=== PATIENT | male | born 1955 | race Caucasian/White ===

== ENCOUNTER 2021-03-13 20:51 | Emergency (ER) | payer MEDICARE ==
[2021-03-13] MEDS ORDERED: Naloxone 0.4 MG/ML SDV IVPUSH STA (21:04)
[2021-03-13] MEDS ORDERED: Naloxone 0.4 MG/ML SDV ONE (21:04)
--- NOTE | 2021-03-13 21:24 | EDM.PDOC ---
ED HPI GENERAL MEDICAL PROBLEM - General Chief Complaint: Neurological Problem Stated Complaint: VIA NADEAU Time Seen by Provider: 03/13/21 20:56 Source of Information: Reports: EMS, Family History Limitations: Reports: Altered Mental Status - History of Present Illness INITIAL COMMENTS - FREE TEXT/NARRATIVE: Alonzo is a 65-year-old male who presents to the ED via [facility] from [facility] in [place] for evaluation of unresponsiveness. The patient was apparently sitting in a wheelchair and became unresponsive. The mention that he had some loss of bowel and bladder control and was having some myoclonic activity. The patient is remained unresponsive with fixed pinpoint pupils and sonorous respirations. He does not respond to painful stimuli. The patient has never been here before so we have no medical information on him, however, EMS did contact one of his daughters who stated that the patient has a history for hypertension, heart disease having had an AR, chronic pain for which he takes hydrocodone but other details for his medical problems are unknown. Upon arrival of EMS we took him to the CT scanner for evaluation of possible stroke or intracranial bleed as he has a disconjugate gaze with fixed pinpoint pupils. - Related Data Allergies Allergy/AdvReac Type Severity Reaction Status Date / Time No Known Allergies Allergy Verified 03/13/21 21:26 Home Meds: Home Meds Acetaminophen/HYDROcodone [HYDROcodone-Acetaminophen 5-325 MG *] mg PO 03/13/21 [History] Azithromycin 250 mg PO DAILY #4 tablet 03/13/21 [Rx] traMADol [Ultram] 50 mg PO 03/13/21 [History] ED ROS GENERAL - Review of Systems Review Of Systems: Unable To Obtain Reason Not Obtained: Patient is unresponsive initially - Physical Exam Exam: See Below Exam Limited By: Altered Mental Status General Appearance: Obtunded (Unresponsive to even painful stimuli) Eye Exam: Bilateral Eye: Abnormal EOM (Conjugate gaze), PERRL (Bilateral pinpoint pupils at 1 mm) Ears: Normal External Exam, Normal TMs Nose: Normal Inspection Throat/Mouth: Normal Inspection. No: Evidence of Tongue Biting Head Exam: Atraumatic, Normocephalic Respiratory/Chest: No Respiratory Distress, Lungs Clear, Normal Breath Sounds, No Accessory Muscle Use Cardiovascular: Normal Peripheral Pulses, Regular Rate, Rhythm, No Murmur GI/Abdominal: Normal Bowel Sounds, Soft, Non-Tender Neuro Exam (Abbreviated): Alert (After receiving Narcan 0.4 mg IV push the patient became more alert.), No Motor/Sensory Deficits, Confused, Slow to Respond, Unresponsive (Initially unresponsive) Extremities: Normal Inspection, Normal Range of Motion, Normal Capillary Refill Skin Exam: Warm, Dry, Intact, Normal Color Course - Vital Signs Last Recorded V/S: Last Vital Signs Temp 36.7 C 03/13/21 21:32 Pulse 70 03/13/21 23:09 Resp 16 03/13/21 23:09 BP 161/87 H 03/13/21 23:09 Pulse Ox 96 03/13/21 23:09 - Orders/Labs/Meds Orders: Active Orders 24 hr Category Date Time Status Insert Urinary Catheter [OM.PC] Q24H Care 03/13/21 21:15 Ordered Urinary Catheter Assessment [RC] ASDIRECTED Care 03/13/21 21:05 Active Chest 1V Frontal [CR] Stat Exams 03/13/21 22:29 Taken Sodium Chloride 0.9% [Normal Saline] 1,000 ml Med 03/13/21 22:30 Active IV ASDIRECTED Isolation [COMM] Stat Oth 03/13/21 21:08 Ordered Medication Orders Sodium Chloride (Normal Saline) 1,000 mls @ 999 mls/hr IV ASDIRECTED MERCEDES Last Admin: 03/13/21 22:33 Dose: 999 mls/hr Documented by: HÉCTOR Labs: Laboratory Tests 03/13/21 03/13/21 03/13/21 Range/Units 20:57 21:13 21:13 WBC 20.0 H (4.5-11.0) K/uL RBC 5.88 (4.30-5.90) M/uL Hgb 16.6 H (12.0-15.0) g/dL Hct 49.7 (40.0-54.0) % MCV 85 (80-98) fL MCH 28 (27-31) pg MCHC 33 (32-36) % Plt Count 223 (150-400) K/uL Neut % (Auto) 76.4 H (36-66) % Lymph % (Auto) 14.1 L (24-44) % Nash % (Auto) 8.6 H (2-6) % Eos % (Auto) 0.7 L (2-4) % Baso % (Auto) 0.2 (0-1) % PT 10.0 (9.2-10.6) sec INR 1.0 APTT 21.9 (21.4-31.8) sec Sodium 140 (140-148) mmol/L Potassium 4.2 (3.6-5.2) mmol/L Chloride 105 (100-108) mmol/L Carbon Dioxide 27 (21-32) mmol/L Anion Gap 8.0 (5.0-14.0) mmol/L BUN 24 H (7-18) mg/dL Creatinine 1.2 (0.8-1.3) mg/dL Est Cr Clr Drug Dosing TNP Estimated GFR (MDRD) > 60 (>60) Glucose 97 (74-106) mg/dL Lactic Acid (0.4-2.0) mmol/L Calcium 9.1 (8.5-10.1) mg/dL Total Bilirubin 0.3 (0.2-1.0) mg/dL AST 22 (15-37) U/L ALT 29 (12-78) U/L Alkaline Phosphatase 65 (46-116) U/L Troponin I High Sens 6.3 (<=60.3) pg/mL C-Reactive Protein 0.96 H (0.0-0.3) mg/dL Total Protein 7.6 (6.4-8.2) g/dL Albumin 4.2 (3.4-5.0) g/dL Globulin 3.4 (2.3-3.5) g/dL Albumin/Globulin Ratio 1.2 (1.2-2.2) Urine Color (YELLOW) Urine Appearance (CLEAR) Urine pH (5.0-8.0) Ur Specific Hagerman (1.008-1.030) Urine Protein (NEGATIVE) mg/dL Urine Glucose (UA) (NEGATIVE) mg/dL Urine Ketones (NEGATIVE) mg/dL Urine Occult Blood (NEGATIVE) Urine Nitrite (NEGATIVE) Urine Bilirubin (NEGATIVE) Urine Urobilinogen (0.2-1.0) EU/dL Ur Leukocyte Esterase (NEGATIVE) Urine RBC (0-5) Urine WBC (0-5) Ur Epithelial Cells Amorphous Sediment Urine Bacteria Urine Mucus Urinalysis Comment Urine Opiates Screen (NEGATIVE) Ur Oxycodone Screen (NEGATIVE) Urine Methadone Screen (NEGATIVE) Ur Propoxyphene Screen (NEGATIVE) Ur Barbiturates Screen (NEGATIVE) Ur Tricyclics Screen (NEGATIVE) Ur Phencyclidine Scrn (NEGATIVE) Ur Amphetamine Screen (NEGATIVE) U Methamphetamines Scrn (NEGATIVE) Urine MDMA Screen (NEGATIVE) U Benzodiazepines Scrn (NEGATIVE) U Cocaine Metab Screen (NEGATIVE) U Marijuana (THC) Screen (NEGATIVE) Ethyl Alcohol mg/dL Influenza Type A RNA (NEGATIVE) RSV RNA (INAAT) (NEGATIVE) Influenza Type B RNA (NEGATIVE) SARS-CoV-2 RNA (JOSE ALEJANDRO) (NEGATIVE) 03/13/21 03/13/21 03/13/21 Range/Units 21:15 21:34 21:34 WBC (4.5-11.0) K/uL RBC (4.30-5.90) M/uL Hgb (12.0-15.0) g/dL Hct (40.0-54.0) % MCV (80-98) fL MCH (27-31) pg MCHC (32-36) % Plt Count (150-400) K/uL Neut % (Auto) (36-66) % Lymph % (Auto) (24-44) % Nash % (Auto) (2-6) % Eos % (Auto) (2-4) % Baso % (Auto) (0-1) % PT (9.2-10.6) sec INR APTT (21.4-31.8) sec Sodium (140-148) mmol/L Potassium (3.6-5.2) mmol/L Chloride (100-108) mmol/L Carbon Dioxide (21-32) mmol/L Anion Gap (5.0-14.0) mmol/L BUN (7-18) mg/dL Creatinine (0.8-1.3) mg/dL Est Cr Clr Drug Dosing Estimated GFR (MDRD) (>60) Glucose (74-106) mg/dL Lactic Acid (0.4-2.0) mmol/L Calcium (8.5-10.1) mg/dL Total Bilirubin (0.2-1.0) mg/dL AST (15-37) U/L ALT (12-78) U/L Alkaline Phosphatase (46-116) U/L Troponin I High Sens (<=60.3) pg/mL C-Reactive Protein (0.0-0.3) mg/dL Total Protein (6.4-8.2) g/dL Albumin (3.4-5.0) g/dL Globulin (2.3-3.5) g/dL Albumin/Globulin Ratio (1.2-2.2) Urine Color Yellow (YELLOW) Urine Appearance Clear (CLEAR) Urine pH 5.5 (5.0-8.0) Ur Specific Hagerman >= 1.030 (1.008-1.030) Urine Protein Trace H (NEGATIVE) mg/dL Urine Glucose (UA) Negative (NEGATIVE) mg/dL Urine Ketones Trace H (NEGATIVE) mg/dL Urine Occult Blood Moderate H (NEGATIVE) Urine Nitrite Negative (NEGATIVE) Urine Bilirubin Negative (NEGATIVE) Urine Urobilinogen 0.2 (0.2-1.0) EU/dL Ur Leukocyte Esterase Negative (NEGATIVE) Urine RBC 5-10 H (0-5) Urine WBC 0-5 (0-5) Ur Epithelial Cells Occasional Amorphous Sediment Occasional Urine Bacteria Occasional Urine Mucus Few Urinalysis Comment See note Urine Opiates Screen Presumptive positive H (NEGATIVE) Ur Oxycodone Screen Negative (NEGATIVE) Urine Methadone Screen Negative (NEGATIVE) Ur Propoxyphene Screen Negative (NEGATIVE) Ur Barbiturates Screen Negative (NEGATIVE) Ur Tricyclics Screen Presumptive positive H (NEGATIVE) Ur Phencyclidine Scrn Negative (NEGATIVE) Ur Amphetamine Screen Negative (NEGATIVE) U Methamphetamines Scrn Negative (NEGATIVE) Urine MDMA Screen Negative (NEGATIVE) U Benzodiazepines Scrn Negative (NEGATIVE) U Cocaine Metab Screen Negative (NEGATIVE) U Marijuana (THC) Screen Presumptive positive H (NEGATIVE) Ethyl Alcohol < 3 mg/dL Influenza Type A RNA (NEGATIVE) RSV RNA (INAAT) (NEGATIVE) Influenza Type B RNA (NEGATIVE) SARS-CoV-2 RNA (JOSE ALEJANDRO) (NEGATIVE) 03/13/21 03/13/21 Range/Units 21:36 22:29 WBC (4.5-11.0) K/uL RBC (4.30-5.90) M/uL Hgb (12.0-15.0) g/dL Hct (40.0-54.0) % MCV (80-98) fL MCH (27-31) pg MCHC (32-36) % Plt Count (150-400) K/uL Neut % (Auto) (36-66) % Lymph % (Auto) (24-44) % Nash % (Auto) (2-6) % Eos % (Auto) (2-4) % Baso % (Auto) (0-1) % PT (9.2-10.6) sec INR APTT (21.4-31.8) sec Sodium (140-148) mmol/L Potassium (3.6-5.2) mmol/L Chloride (100-108) mmol/L Carbon Dioxide (21-32) mmol/L Anion Gap (5.0-14.0) mmol/L BUN (7-18) mg/dL Creatinine (0.8-1.3) mg/dL Est Cr Clr Drug Dosing Estimated GFR (MDRD) (>60) Glucose (74-106) mg/dL Lactic Acid 1.0 (0.4-2.0) mmol/L Calcium (8.5-10.1) mg/dL Total Bilirubin (0.2-1.0) mg/dL AST (15-37) U/L ALT (12-78) U/L Alkaline Phosphatase (46-116) U/L Troponin I High Sens (<=60.3) pg/mL C-Reactive Protein (0.0-0.3) mg/dL Total Protein (6.4-8.2) g/dL Albumin (3.4-5.0) g/dL Globulin (2.3-3.5) g/dL Albumin/Globulin Ratio (1.2-2.2) Urine Color (YELLOW) Urine Appearance (CLEAR) Urine pH (5.0-8.0) Ur Specific Hagerman (1.008-1.030) Urine Protein (NEGATIVE) mg/dL Urine Glucose (UA) (NEGATIVE) mg/dL Urine Ketones (NEGATIVE) mg/dL Urine Occult Blood (NEGATIVE) Urine Nitrite (NEGATIVE) Urine Bilirubin (NEGATIVE) Urine Urobilinogen (0.2-1.0) EU/dL Ur Leukocyte Esterase (NEGATIVE) Urine RBC (0-5) Urine WBC (0-5) Ur Epithelial Cells Amorphous Sediment Urine Bacteria Urine Mucus Urinalysis Comment Urine Opiates Screen (NEGATIVE) Ur Oxycodone Screen (NEGATIVE) Urine Methadone Screen (NEGATIVE) Ur Propoxyphene Screen (NEGATIVE) Ur Barbiturates Screen (NEGATIVE) Ur Tricyclics Screen (NEGATIVE) Ur Phencyclidine Scrn (NEGATIVE) Ur Amphetamine Screen (NEGATIVE) U Methamphetamines Scrn (NEGATIVE) Urine MDMA Screen (NEGATIVE) U Benzodiazepines Scrn (NEGATIVE) U Cocaine Metab Screen (NEGATIVE) U Marijuana (THC) Screen (NEGATIVE) Ethyl Alcohol mg/dL Influenza Type A RNA Negative (NEGATIVE) RSV RNA (INAAT) Negative (NEGATIVE) Influenza Type B RNA Negative (NEGATIVE) SARS-CoV-2 RNA (JOSE ALEJANDRO) Negative (NEGATIVE) Meds: Medications Generic Name Dose Route Start Last Admin Trade Name Freq PRN Reason Stop Dose Admin Sodium Chloride 1,000 mls @ 999 mls/hr 03/13/21 22:30 03/13/21 22:33 Normal Saline IV 999 mls/hr ASDIRECTED MERCEDES Administration Discontinued Medications Generic Name Dose Route Start Last Admin Trade Name Freq PRN Reason Stop Dose Admin Azithromycin 500 mg 03/13/21 23:19 Azithromycin 250 Mg Tab PO 03/13/21 23:20 ONETIME STA Naloxone HCl 0.4 mg 03/13/21 21:04 03/13/21 21:05 Naloxone 0.4 Mg/Ml Sdv IVPUSH 03/13/21 21:05 0.4 mg ONETIME STA Administration Naloxone HCl Confirm 03/13/21 21:04 03/13/21 22:27 Naloxone 0.4 Mg/Ml Sdv Administered 03/13/21 21:05 Not Given Dose 0.4 mg .ROUTE .[facility] - Radiology Interpretation Free Text/Narrative:: I reviewed the images of the CT of the head without contrast as well as the report. The report is as follows: FINDINGS: No acute intracranial hemorrhage or extra-axial collection. No evidence of acute cortical infarction. Chronic lacunar infarct in the head of left caudate nucleus. 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 No mass effect or midline shift. Multiple regions of decreased attenuation within the periventricular and subcortical white matter of both cerebral hemispheres most likely reflects chronic microvascular ischemic disease and age related change in this patient. Vascular calcifications within the carotid siphons. Orbital contents are normal. No calvarial fractures. No lytic or sclerotic osseous lesions within the calvarium or skull base. Scalp and other imaged soft tissue structures are normal. Mastoid air cells are clear. Polypoid mucosal thickening in the right frontal sinus. IMPRESSION: 1. No acute intracranial abnormality. 2. Small chronic infarct in the left caudate nucleus. 3. Moderate chronic microangiopathic white matter changes. 4. 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 No evidence of acute hydrocephalus. Please note that all CT scans at this facility use dose modulation, iterative reconstruction, and/or weight-based dosing when appropriate to reduce radiation dose to as low as reasonably achievable. Dictated by Abel Hong MD @ 03/13/2021 9:48:36 PM - Re-Assessments/Exams Free Text/Narrative Re-Assessment/Exam: 03/13/21 22:44 I reviewed the patient's labs showing a leukocytosis at 20.0 with 76% neutrophils, hemoglobin of 16.6 and platelet count of 223,000. Comprehensive metabolic panel shows a sodium of 140, potassium 4.2, chloride 105, bicarbonate of 27, BUN of 24 with a creatinine 1.2 and a glucose of 97. C- reactive protein is mildly elevated 0.96. Troponin is normal at 6.3, PT/INR is 10/1.0 and PTT is 21.9. Urinalysis is negative except for 5-10 RBCs due to traumatic insertion of the Ya catheter. Urine drug screen is positive for opiates and marijuana. Patient is negative for Covid, RSV, and influenza. As the patient did respond to Narcan, this is likely an overuse of his hydrocodone causing his unresponsiveness. It is worrisome that the patient has a significant leukocytosis with left shift so we will get a lactate and chest x- ray on him. 03/14/21 00:20 patient's family is here to retrieve him. His venous lactate was 1.0 and his chest x-ray showed some hilar adenopathy consistent with bronchitis. We will put the patient on azithromycin Z-Curtis to treat this. At this time he is suitable for discharge home. He should really keep close attention to his hydrocodone use. Departure - Departure Time of Disposition: 00:20 Disposition: Home, Self-Care 01 Clinical Impression: Unresponsiveness Acute bronchitis Qualifiers: Bronchitis organism: unspecified organism Qualified Code(s): J20.9 - Acute bronchitis, unspecified Opiate overdose Qualifiers: Encounter type: initial encounter Injury intent: accidental or unintentional Qualified Code(s): T40.601A - Poisoning by unspecified narcotics, accidental (unintentional), initial encounter - Discharge Information Prescriptions: Azithromycin 250 mg PO DAILY #4 tablet Referrals: PCP,None [Primary Care Provider] - Forms: ED Department Discharge Care Plan Goals: You are brought to the emergency room after being found at [facility] laying on the ground unresponsive. Upon arrival to the ED we evaluated you for possible stroke or intracranial bleed which was unremarkable for any new findings although it did show that you have had a previous stroke. Because of your pinpoint pupils this was thought to be due to opiate overuse as you are prescribed hydrocodone and you were given Narcan which resolved your unresponsiveness. Your work-up today has shown that you have also likely developed a bronchitis which we will treat with azithromycin. Your first dose was given in the emergency room and a prescription has been printed out for you for the remainder of the course of the antibiotic. At this time, I believe the we can discharge you into the care of your son. You need to be especially careful when taking your hydrocodone as to not overdo it. There was nothing found in your work-up today that would dictate a need for hospitalization. Sepsis Event Note (ED) - Focused Exam Vital Signs: Vital Signs Temp Pulse Resp BP Pulse Ox 03/13/21 23:09 70 16 161/87 H 96 03/13/21 21:32 36.7 C 81 18 143/70 H 92 L - Problem List & Annotations (1) Acute bronchitis SNOMED Code(s): 51088638 Code(s): J20.9 - ACUTE BRONCHITIS, UNSPECIFIED Status: Acute Priority: High Current Visit: Yes Qualifiers: Bronchitis organism: unspecified organism Qualified Code(s): J20.9 - Acute bronchitis, unspecified (2) Opiate overdose SNOMED Code(s): 789807784 Code(s): T40.601A - POISONING BY UNSP NARCOTICS, ACCIDENTAL, INIT Status: Acute Priority: High Current Visit: Yes Qualifiers: Encounter type: initial encounter Injury intent: accidental or unintentional Qualified Code(s): T40.601A - Poisoning by unspecified narcotics, accidental (unintentional), initial encounter (3) Unresponsiveness SNOMED Code(s): 900127290 Code(s): R41.89 - OTH SYMPTOMS AND SIGNS W COGNITIVE FUNCTIONS AND AWARENESS Status: Acute Priority: High Current Visit: Yes - Problem List Review Problem List Initiated/Reviewed/Updated: Yes - My Orders Last 24 Hours: My Active Orders 03/13/21 21:05 Urinary Catheter Assessment [RC] ASDIRECTED 03/13/21 21:08 Isolation [COMM] Stat 03/13/21 21:15 Insert Urinary Catheter [OM.PC] Q24H 03/13/21 22:29 Chest 1V Frontal [CR] Stat 03/13/21 22:30 Sodium Chloride 0.9% [Normal Saline] 1,000 ml IV ASDIRECTED - Assessment/Plan Last 24 Hours: My Active Orders 03/13/21 21:05 Urinary Catheter Assessment [RC] ASDIRECTED 03/13/21 21:08 Isolation [COMM] Stat 03/13/21 21:15 Insert Urinary Catheter [OM.PC] Q24H 03/13/21 22:29 Chest 1V Frontal [CR] Stat 03/13/21 22:30 Sodium Chloride 0.9% [Normal Saline] 1,000 ml IV ASDIRECTED
--- NOTE | 2021-03-13 21:49 | CRLCT ---
For Patients: As a result of the Century Cures Act, medical imaging exams and procedure reports are released immediately into your electronic medical record. You may view this report before your referring provider. If you have questions, please contact your health care provider. INDICATION: unresponsive TECHNIQUE: CT of the head without contrast. Coronal and sagittal reformats. Bone and soft tissue algorithms. COMPARISON: No prior studies available for comparison at this institution. FINDINGS: No acute intracranial hemorrhage or extra-axial collection. No evidence of acute cortical infarction. Chronic lacunar infarct in the head of left caudate nucleus. 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 No mass effect or midline shift. Multiple regions of decreased attenuation within the periventricular and subcortical white matter of both cerebral hemispheres most likely reflects chronic microvascular ischemic disease and age related change in this patient. Vascular calcifications within the carotid siphons. Orbital contents are normal. No calvarial fractures. No lytic or sclerotic osseous lesions within the calvarium or skull base. Scalp and other imaged soft tissue structures are normal. Mastoid air cells are clear. Polypoid mucosal thickening in the right frontal sinus. IMPRESSION: 1. No acute intracranial abnormality. 2. Small chronic infarct in the left caudate nucleus. 3. Moderate chronic microangiopathic white matter changes. 4. 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 No evidence of acute hydrocephalus. Please note that all CT scans at this facility use dose modulation, iterative reconstruction, and/or weight-based dosing when appropriate to reduce radiation dose to as low as reasonably achievable. Dictated by Abel Hong MD @ 03/13/2021 9:48:36 PM (Electronically Signed)
[2021-03-13 21:53] LABS: CORONAVIRUS COVID-19 NAA NEGATIVE (NEGATIVE)
[2021-03-13] MEDS ORDERED: Sodium Chloride 0.9% 1,000 ML IV SCH (22:30)
[2021-03-13] MEDS ORDERED: Azithromycin 250 MG Tab PO STA (23:19)
--- NOTE | 2021-03-14 10:54 | CR ---
CHEST: Portable 03/13/2021 at 10:59 PM CLINICAL HISTORY:Leukocytosis COMPARISON:None FINDINGS: Heart size and pulmonary vascularity are normal. There is some mild elevation of the right hemidiaphragm. There is mild generalized increase in lung markings. No consolidation is seen. Impression: Mildly prominent lung markings bilaterally slightly greater on the right. Pneumonitis is a consideration.
== END 2021-03-14 01:15 | disposition home or self-care (01) ==
LOC: JP.ED 20:51
DX: T40.601A Poisoning by unspecified narcotics, accidental (unintentional), initial encounter (principal); R40.4 Transient alteration of awareness; J20.9 Acute bronchitis, unspecified; Z20.822 Contact with and (suspected) exposure to COVID-19
CPT/HCPCS: 0241U; 36415; 51702; 70450; 71045; 80053; 80305; 80307; 81001; 83605; 84484; 85025; 85610; 85730; 86140; 96374; 99285; A9270; J2310; J7030